=== PATIENT | female | born 1940 | race Caucasian/White ===

== ENCOUNTER 2021-09-17 19:48 | Emergency (ER) | payer MEDICARE ==
[~2021-09-17] VITALS: Ht 157.5 cm; Wt 54.5 kg
[2021-09-17] MEDS ORDERED: ondansetron/PF 4mg/2ml inj IV ONE (21:35)
[2021-09-17] MEDS ORDERED: normal saline 1000ml 1,000 ML IV ONE (21:50)
[2021-09-17 21:52] LABS: BASOPHILS % (AUTO) 0.1 % (0-1); EOSINOPHILS % (AUTO) 0 % (0-6); HEMATOCRIT 47.2 % (35.0-45.0); HEMOGLOBIN 15.5 g/dl (12.0-16.0); LYMPHOCYTES # (AUTO) 0.3 X10'3 (1.1-4.8); LYMPHOCYTES % (AUTO) 2.3 % (21-51); MEAN CORPUSCULAR HEMOGLOBIN 29.9 PG (27.0-31.0); MEAN CORPUSCULAR HGB CONC 32.7 g/dL (33.0-36.5); MEAN CORPUSCULAR VOLUME 91.5 FL (78-98); MONOCYTES # (AUTO) 0.7 X10'3 (0-0.9); MONOCYTES % (AUTO) 5.2 % (2-12); NEUTROPHILS # (AUTO) 12.9 X10'3 (1.8-7.7); NEUTROPHILS % (AUTO) 92.4 % (42-75); PLATELET COUNT 232 X10'3 (140-440); RED BLOOD COUNT 5.17 X10'6 (4.20-5.60); RED CELL DISTRIBUTION WIDTH 14.5 % (11.5-14.5)
[2021-09-17 22:13] LABS: ALANINE AMINOTRANSFERASE 23 U/L (12-78); ALBUMIN 4.3 G/DL (3.4-5.0); ALKALINE PHOSPHATASE 128 IU/L (46-116); ANION GAP 13 (8-16); ASPARTATE AMINO TRANSFERASE 26 U/L (10-37); BILIRUBIN,TOTAL 0.9 MG/DL (0.1-1.0); BLOOD UREA NITROGEN 19 MG/DL (7-18); BUN/CREATININE RATIO 21.8 (6.6-38.0); CALCIUM 9.9 MG/DL (8.5-10.1); CHLORIDE 109 MMOL/L (99-107); CREATININE 0.87 MG/DL (0.40-0.90); GLUCOSE 149 MG/DL (70-104); LIPASE 288 U/L (73-393); POTASSIUM 3.7 MMOL/L (3.5-5.1); SODIUM 146 MMOL/L (135-145); TOTAL CARBON DIOXIDE 24.2 MMOL/L (24-32); TOTAL PROTEIN 8.8 G/DL (6.4-8.2); eGFR 62 ML/MIN
[2021-09-17 22:27] LABS: TOTAL CELLS COUNTED 100
[2021-09-17 22:28] LABS: PLATELET ESTIMATE NORMAL
[2021-09-17] MEDS ORDERED: ONDA4TAB12 PO (23:16)
[2021-09-18 00:17] VITALS: BP 148/72
== END 2021-09-18 00:19 | disposition home or self-care (01) ==
LOC: EDBD 19:49 → ER 19:49
DX: A08.4 Viral intestinal infection, unspecified (principal); Z79.899 Other long term (current) drug therapy
CPT/HCPCS: 36415; 80053; 83690; 84484; 85007; 85025; 96361; 96374; 99283; J2405; J7030

== ENCOUNTER 2022-06-14 00:39 | Emergency (ER) | payer MEDICARE ==
[~2022-06-14] VITALS: Ht 157.5 cm; Wt 56.8 kg
[~2022-06-14 00:39] MED LIST: ONDA4TAB12 PO
[2022-06-14 00:45] VITALS: BP 197/87
== END 2022-06-14 10:17 | disposition left against medical advice (07) ==
LOC: ER 00:39
DX: R19.7 Diarrhea, unspecified (principal); Z53.21 Procedure and treatment not carried out due to patient leaving prior to being seen by health care provider

== ENCOUNTER 2022-12-15 08:14 | Emergency (ER) | payer MEDICARE ==
[~2022-12-15] VITALS: Ht 157.5 cm; Wt 54.5 kg
[2022-12-15 09:01] LABS: BASOPHILS # (AUTO) 0.1 X10'3 (0-0.2); BASOPHILS % (AUTO) 0.6 % (0-1); EOSINOPHILS % (AUTO) 0.3 % (0-6); HEMATOCRIT 44.7 % (35.0-45.0); HEMOGLOBIN 14.6 g/dl (12.0-16.0); LYMPHOCYTES # (AUTO) 1.5 X10'3 (1.1-4.8); LYMPHOCYTES % (AUTO) 12.7 % (21-51); MEAN CORPUSCULAR HEMOGLOBIN 30.5 PG (27.0-31.0); MEAN CORPUSCULAR HGB CONC 32.7 g/dL (33.0-36.5); MEAN CORPUSCULAR VOLUME 93.4 FL (78-98); MEAN PLATELET VOLUME 8.6 FL (7.4-10.4); MONOCYTES # (AUTO) 0.8 X10'3 (0-0.9); MONOCYTES % (AUTO) 6.7 % (2-12); NEUTROPHILS # (AUTO) 9.4 X10'3 (1.8-7.7); NEUTROPHILS % (AUTO) 79.7 % (42-75); PLATELET COUNT 261 X10'3 (140-440); RED BLOOD COUNT 4.79 X10'6 (4.20-5.60); RED CELL DISTRIBUTION WIDTH 13.7 % (11.5-14.5); WHITE BLOOD COUNT 11.8 X10'3 (4.5-11.0)
[2022-12-15 09:23] LABS: ALANINE AMINOTRANSFERASE 25 U/L (12-78); ALKALINE PHOSPHATASE 114 IU/L (46-116); ANION GAP 9 (8-16); ASPARTATE AMINO TRANSFERASE 40 U/L (10-37); BILIRUBIN,TOTAL 0.7 MG/DL (0.1-1.0); BLOOD UREA NITROGEN 14 MG/DL (7-18); BUN/CREATININE RATIO 13.1 (10.0-20.0); CALCIUM 9.4 MG/DL (8.5-10.1); CHLORIDE 103 MMOL/L (99-107); CREATININE 1.07 MG/DL (0.40-0.90); GLUCOSE 108 MG/DL (70-104); POTASSIUM 3.3 MMOL/L (3.5-5.1); SODIUM 140 MMOL/L (135-145); TOTAL CARBON DIOXIDE 27.9 MMOL/L (24-32); TOTAL PROTEIN 7.9 G/DL (6.4-8.2); eGFR 49 ML/MIN
[2022-12-15 09:24] LABS: LIPASE < 50 U/L (73-393)
[2022-12-15] MEDS ORDERED: amox tr/potassium clavulanate 875/125mg TAB PO ONE (09:55)
[2022-12-15] MEDS ORDERED: potassium Cl 20 mEq SR tablet PO STA (09:59)
[2022-12-15] MEDS ORDERED: ONDA4TAB12 PO (10:01)
[2022-12-15] MEDS ORDERED: AMOX-580 PO (10:01)
[2022-12-15] MEDS ORDERED: DICY10CA88 PO (10:01)
[2022-12-15 10:03] LABS: CLARITY,URINE CLOUDY (Clear); COLOR,URINE YELLOW (Yellow); GLUCOSE, URINE NEGATIVE (Neg); KETONES,URINE NEGATIVE (Neg); LEUKOCYTE ESTERASE ,URINE MODERATE (Neg); NITRITES, URINE NEGATIVE (Neg); OCCULT BLOOD,URINE TRACE-INTACT (Neg); PH,URINE 5.5 (4.8-8.0); PROTEIN,URINE NEGATIVE (Neg); UROBILINOGEN,URINE 0.2 E.U/dL (0.2-1.0)
[2022-12-15 10:07] LABS: UA COLLECTION TYPE CLN CATCH MIDSTREAM
[2022-12-15 10:11] LABS: SQUAMOUS EPITHELIAL CELL,UR MANY /LPF (FEW)
[2022-12-15 10:12] LABS: BACTERIA,URINE 2+ /HPF (Neg); MUCUS STRANDS FEW /LPF (Neg); RBC,URINE 0-2 /HPF (0-2); WBC CLUMPS,URINE MANY /HPF (NEGATIVE)
[2022-12-15 10:44] VITALS: BP 142/99
== END 2022-12-15 10:45 | disposition home or self-care (01) ==
LOC: ER 08:15
DX: K52.9 Noninfective gastroenteritis and colitis, unspecified (principal); K57.90 Diverticulosis of intestine, part unspecified, without perforation or abscess without bleeding; I10 Essential (primary) hypertension
CPT/HCPCS: 36415; 74176; 80053; 81001; 83690; 84145; 85025; 99284

== ENCOUNTER 2022-12-20 08:34 | Emergency (ER) | payer MEDICARE ==
[~2022-12-20] VITALS: Ht 157.5 cm; Wt 60.0 kg
[~2022-12-20 08:34] MED LIST changes: +AMOX-580 PO; +DICY10CA88 PO
--- NOTE | 2022-12-20 10:11 | NUR ---
Callled lab for rapid covid swab.as per syrup machine laborer they will deliver it to the er.
[2022-12-20 10:14] LABS: BASOPHILS # (AUTO) 0.1 X10'3 (0-0.2); BASOPHILS % (AUTO) 0.8 % (0-1); EOSINOPHILS # (AUTO) 0.1 X10'3 (0-0.9); HEMATOCRIT 40.3 % (35.0-45.0); HEMOGLOBIN 13.1 g/dl (12.0-16.0); LYMPHOCYTES # (AUTO) 1.4 X10'3 (1.1-4.8); LYMPHOCYTES % (AUTO) 20.1 % (21-51); MEAN CORPUSCULAR HEMOGLOBIN 30.6 PG (27.0-31.0); MEAN CORPUSCULAR HGB CONC 32.4 g/dL (33.0-36.5); MEAN CORPUSCULAR VOLUME 94.4 FL (78-98); MEAN PLATELET VOLUME 8.4 FL (7.4-10.4); MONOCYTES # (AUTO) 0.6 X10'3 (0-0.9); MONOCYTES % (AUTO) 8.1 % (2-12); NEUTROPHILS # (AUTO) 4.9 X10'3 (1.8-7.7); PLATELET COUNT 268 X10'3 (140-440); RED BLOOD COUNT 4.27 X10'6 (4.20-5.60); RED CELL DISTRIBUTION WIDTH 13.1 % (11.5-14.5); WHITE BLOOD COUNT 7.1 X10'3 (4.5-11.0)
[2022-12-20 11:34] LABS: ALANINE AMINOTRANSFERASE 25 U/L (12-78); ALBUMIN 3.5 G/DL (3.4-5.0); ALBUMIN/GLOBULIN RATIO 0.9 (1.1-1.5); ALKALINE PHOSPHATASE 90 IU/L (46-116); ANION GAP 10 (8-16); ASPARTATE AMINO TRANSFERASE 36 U/L (10-37); BILIRUBIN,TOTAL 0.3 MG/DL (0.1-1.0); BLOOD UREA NITROGEN 13 MG/DL (7-18); BUN/CREATININE RATIO 12.7 (10.0-20.0); CALCIUM 9.4 MG/DL (8.5-10.1); CHLORIDE 100 MMOL/L (99-107); CREATININE 1.02 MG/DL (0.40-0.90); GLUCOSE 90 MG/DL (70-104); POTASSIUM 4.1 MMOL/L (3.5-5.1); SODIUM 135 MMOL/L (135-145); TOTAL CARBON DIOXIDE 25.5 MMOL/L (24-32); TOTAL PROTEIN 7.3 G/DL (6.4-8.2); eGFR 52 ML/MIN
[2022-12-20 12:28] VITALS: BP 126/72
== END 2022-12-20 12:30 | disposition home or self-care (01) ==
LOC: ER 08:34
DX: K52.9 Noninfective gastroenteritis and colitis, unspecified (principal); Z20.822 Contact with and (suspected) exposure to COVID-19; I10 Essential (primary) hypertension; Z79.899 Other long term (current) drug therapy
CPT/HCPCS: 36415; 80053; 85025; 87811; 99283

== ENCOUNTER 2024-05-10 10:53 | Emergency (ER) | payer MEDICARE ==
[~2024-05-10] VITALS: Ht 157.5 cm; Wt 50.7 kg
[~2024-05-10 10:53] MED LIST changes: -AMOX-580 PO; -DICY10CA88 PO; +ONDA-243 PO; -ONDA4TAB12 PO
[2024-05-10 11:12] VITALS: TEMP 98.4
[2024-05-10] MEDS: diphenhydrAMINE 50 mg/ml inj IV ONE (11:33)
[2024-05-10] MEDS: famotidine/PF 10 mg/ml inj IV ONE (11:34)
[2024-05-10] MEDS: methylPREDNISolone sod succ/PF 40mg inj. IV ONE (11:34)
[2024-05-10] MEDS ORDERED: DIPH25CA83 PO (12:57)
[2024-05-10] MEDS ORDERED: PRED20TA PO (12:57)
[2024-05-10 12:59] VITALS: BP 120/67; PULSE 77; RESP 16; O2SAT 96
== END 2024-05-10 13:24 | disposition home or self-care (01) ==
LOC: ER 10:53
DX: T78.3XXA Angioneurotic edema, initial encounter (principal); I10 Essential (primary) hypertension; X58.XXXA Exposure to other specified factors, initial encounter
CPT/HCPCS: 96374; 96375; 99284; J1200; J2919; J3490

== ENCOUNTER 2024-10-17 06:53 | Emergency (ER) | payer MEDICARE ==
[~2024-10-17] VITALS: Ht 157.5 cm; Wt 53.7 kg
[~2024-10-17 06:53] MED LIST changes: +DIPH25CA83 PO; +PRED20TA PO
[2024-10-17 06:55] VITALS: BP 166/109; PULSE 97; RESP 16; TEMP 98; O2SAT 99
--- NOTE | 2024-10-17 07:28 | Physician Documentation ---
History of Present Illness ~ Chief Complaint: Eye Pain Stated Complaint: EYE PAIN Time Seen by MD: 07:09 OK to notify your PCP?: Yes Primary Medical Doctor: ELZBIETA SALVADOR Mode of Arrival: [facility] 84-year-old female patient came to the emergency room for left eye pain and irritation after she uses the eyedrops given by her primary care provider. She has been having this since Friday. 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 Her vision is essentially same. She was given two eyedrops and both causing burning sensation. Other complaints. Medication Reconciliation Allergies: Coded Allergies: No Known Allergies (Unverified , 06/14/22) Scheduled Prednisone* (Prednisone*), 3 TAB PO DAILY Scheduled PRN Diphenhydramine Hcl (Benadryl), 1 CAP PO HS PRN for allergies ONDANSETRON ODT 4mg tablet (Ondansetron Odt), 1 TABLET PO Q6H PRN for nausea/vomiting ONDANSETRON ODT 4mg tablet (Ondansetron Odt), 1 TABLET PO Q6H PRN for juana sea/vomiting Past Medical History Past Medical History: Hypertension Past Surgical History: no surgical history, noncontributory Alcohol Use: None Drug Use: none Review of Systems ROS As stated above in the HPI, otherwise all systems are reviewed and negative. Physical Exam Vital Signs: Temperature: 98.0, Source: Temporal, Heart Rate: 97, Respiratory Rate: 16, BP: 166/109, Pulse Oximetry: 99, Weight: 53.700 Oxygen Flow Rate: 0 Physical Exam Reviewed vital signs and they are well within normal range. Const: Patient looks well and ambulatory ,well oriented Head: Atraumatic Eyes: Normal Conjunctiva JULIANNA EOMI. Slight redness in the lower congenital ever in the middle. ENT: Normal External Ears, Nose and Mouth. Moist mucous membranes Neck: Full range of motion. No meningismus Resp: Clear to auscultation bilaterally. Normal work of breathing Cardio: Regular rate and rhythm, no murmurs. Skin well perfused Abd: Soft, non-tender, non-distended. Normal bowel sounds. No rebound or guarding Skin: No petechiae or rashes. Warm and dry Back: No midline or flank tenderness Ext: No cyanosis, or edema Neuro: Awake and alert Psych: Normal Mood and Affect Progress Results/Orders Results/Orders Completed Orders - LOREE ORDONEZ MD Ciprofloxacin Ophth Drops (Ciloxan 0.3% (10/17/24 07:10) Vital Signs 10/17/24 06:55 Temp 98.0 Pulse 97 Resp 16 B/P (MAP) 166/109 Pulse Ox 99 O2 Flow Rate 0 Medical Decision Making Findings During the physical examination, the findings suggestive of acute life- threatening condition such as JVD, tracheal deviation, acidotic breathing, noisy stridorous breath sounds, pulses paradoxus, muffled heart sounds, unequal breath sounds, abdominal rigidity and rebound tenderness, focal neurological deficits, cool clammy skin, severe hypotension, severe tachycardia or bradycardia are absent. Examination of the left eye does not reveal any abnormality and I think I will not be able to contribute much as she is going to see her lift supervisor tomorrow. What I will do his hours stopped to eyedrops and put her on Cipro ophthalmic solution and see how she does. DISCLAIMER Inadvertent spelling and grammatical errors,inadvertent ham pumper errors,syntax errors, grammatical errors, and spelling errors are likely due to EMR/dictation software use and do not reflect on the overall quality of patient care. Note that the electronic time recorded on this note does not necessarily reflect the actual time of the patient encounter. Departure Disposition: HOME / SELF CARE / HOMELESS Impression: Primary Impression: Irritation of left eye Condition: Stable Additional Instructions: Thank you so much for visiting [facility] Emergency room. Please ask your nurse or provider if you have questions about your care today and do not leave until all your questions have been answered. Please use any medications given as directed and see your eye doctor lift supervisor Friday as planned. Referrals: NO PRIMARY CARE PROVIDER (PCP) Prescriptions Ciprofloxacin Hcl Ophth* (Ciloxan 0.35 Ophth Drops*) 2.5 Ml Bottle 1 DROP LEFTEYE Q6H for 7 Days, #5 ML Prov: LOREE ORDONEZ MD 10/17/24 Education Educated: Patient Educated regarding: diagnosis, need for follow up Signature Scribe Signature: x Attestation: LOREE Art MD October 17, 2024 07:28
[2024-10-17] MEDS ORDERED: CIPR2.5D21 LEFTEYE (07:29)
[2024-10-17] MEDS: ciprofloxacin 0.3% 2.5ml ophthalmic solution LEFTEYE ONE (07:58)
== END 2024-10-17 08:03 | disposition home or self-care (01) ==
LOC: ER 06:54
DX: H57.89 Other specified disorders of eye and adnexa (principal); I10 Essential (primary) hypertension
CPT/HCPCS: 99283

== ENCOUNTER 2025-06-03 03:36 | Emergency (ER) | payer MEDICARE ==
[~2025-06-03] VITALS: Ht 157.5 cm; Wt 52.3 kg
--- NOTE | 2025-06-03 04:21 | Physician Documentation ---
History of Present Illness ~ Chief Complaint: Bloody Stools Stated Complaint: DIARRHEA Time Seen by MD: 03:53 Primary Medical Doctor: ELZBIETA SALVADOR HPI Patient presents to the emergency room with bright red blood per rectum. No prior instances. She is not on blood thinners. Patient has been having diarrhea for the past few days with no abdominal pain and when she wiped tonight she noticed that has blood and looked in the toilet to see that the toilet was filled with blood therefore came in to be evaluated. No fevers. Only past medical history she reports that has hypertension for which she takes medications for this. Medication Reconciliation Allergies: Coded Allergies: [email or web address] (Verified Allergy, Severe, Anaphylaxis, 06/03/25) Scheduled Prednisone* (Prednisone*), 3 TAB PO DAILY Scheduled PRN Diphenhydramine Hcl (Benadryl), 1 CAP PO HS PRN for allergies ONDANSETRON ODT 4mg tablet (Ondansetron Odt), 1 TABLET PO Q6H PRN for nausea/vomiting ONDANSETRON ODT 4mg tablet (Ondansetron Odt), 1 TABLET PO Q6H PRN for nausea/vomiting Past Medical History Past Medical History: Hypertension Past Surgical History: no surgical history, noncontributory Alcohol Use: None Drug Use: none Review of Systems ROS All review of systems negative except as per HPI Physical Exam Vital Signs: Temperature: 98.6, Source: Oral, Heart Rate: 94, Respiratory Rate: 16, BP: 110/73, Pulse Oximetry: 99, Weight: 52.270 Physical Exam General: Patient is awake, alert, oriented x4 in no acute distress and well appearing.~ Head: Normocephalic and atraumatic. Eyes: Conjunctival normal. EOMI. PERRL. ENT: Mucous membranes moist. Neck: Supple, trachea is midline. Chest: Clear to auscultation bilaterally without rales, rhonchi, or wheezes. There is no accessory muscle use or retractions. Cardiac: Tachycardic and regular without murmurs, gallops, or rubs. Abd: Soft, nondistended, nontender, with normoactive bowel sounds. No guarding, rebound, or rigidity. Progress Results/Orders Results/Orders Completed Orders - EDOUARD KLINE MD Cbc/Diff (06/03/25 04:19) BMP (06/03/25 04:19) PTT (06/03/25 04:19) Pt Inr (06/03/25 04:19) Type And Screen (06/03/25 04:19) Electrocardiogram (06/03/25 04:22) TSH (06/03/25 04:22) Ua W/Microscopic, Cult If Ind (06/03/25 05:23) Vital Signs 06/03/25 06/03/25 06/03/25 06/03/25 03:58 04:05 05:39 06:02 Temp 98.6 Pulse 94 103 102 Resp 18 16 16 16 B/P (MAP) 110/73 99/60 (73) 105/60 (75) Pulse Ox 99 100 99 Laboratory Tests Test 06/03/25 04:40 06/03/25 05:23 White Blood Count 9.0 Red Blood Count 4.45 Hemoglobin 13.2 Hematocrit 39.8 Mean Corpuscular Volume 89.4 Mean Corpuscular Hemoglobin 29.6 Mean Corpuscular Hemoglobin Concent 33.1 Red Cell Distribution Width 13.9 Platelet Count 280 Mean Platelet Volume 8.5 Neutrophils (%) (Auto) 71.4 Lymphocytes (%) (Auto) 19.4 L Monocytes (%) (Auto) 7.4 Eosinophils (%) (Auto) 0.8 Basophils (%) (Auto) 1.0 Neutrophils # (Auto) 6.4 Lymphocytes # (Auto) 1.7 Monocytes # (Auto) 0.7 Eosinophils # (Auto) 0.1 Basophils # (Auto) 0.1 CBC Comment Prothrombin Time 10.9 INR International Normalized Ratio 1.1 Activated Partial Thromboplast Time 32 Coagulation Comments Sodium Level 138 Potassium Level 4.2 Chloride Level 106 Carbon Dioxide Level 22.7 L Anion Gap 9 Blood Urea Nitrogen 20 H Creatinine 1.32 H Estimated GFR/1.73 m2 38 BUN/Creatinine Ratio 15.2 Glucose Level 87 Calcium Level 9.8 Albumin 3.9 Thyroid Stimulating Hormone (TSH) 0.82 Chemistry Comments Urine Specimen Description Non-specified Urine Color Yellow Urine Clarity Slightly cloudy Urine pH 5.5 Urine Specific [place] <=1.005 Urine Protein Negative Urine Glucose (UA) Negative Urine Ketones Negative Urine Occult Blood Negative Urine Nitrite Negative Urine Bilirubin Negative Urine Urobilinogen 0.2 Urine Leukocyte Esterase Small H Urine RBC 0-2 Urine WBC 0-4 Urine Squamous Epithelial Cells Many Urine Transitional Epithelial Cells Few Urine Bacteria Few Urine Culture Indicated Rejected for culture Volume Urine Centrifuged 10 ml Urine Comment EKG/XRAY/CT/US/VASC/MRI EKG : Additional Comment EKG interpreted by myself shows time of 426, rate 103, sinus tachycardia, borderline left axis deviation, no ST changes Medical Decision Making Additional information obtaine: old records Findings Patient presented to the emergency room with one episode of bright red blood per rectum that has per HPI. Differentials include but are not limited to anemia, hemorrhoidal bleed, diverticular bleed, av malformation, blood describe lysis therefore labs ordered which were reassuring. No significant elevation of BUN and he had not feel patient is suffering from an upper GI bleed. Hemoglobin reassuring. Had discussion with the patient regarding risks of profuse bleeding she has acknowledged this. I feel patient is safe for discharge with ER precautions discussed. Diff Dx GI Bleed:Consideration: Include: AE fistula, Angiodysplasia, Bleeding diathesis, Blood loss anemia, Carcinoma, Diverticulosis, Diverticulitis, Esophageal varicies, Esophagitis, Gastritis, Gastroenteritis, Inflammatory BD, Jessica-Mo syndrome, Meckel's diverticulum, PUD, Other Departure Disposition: 01 HOME / SELF CARE / HOMELESS Impression: Primary Impression: Blood per rectum Condition: Stable Discharge Instructions: Bloody Stools Referrals: NO PRIMARY CARE PROVIDER (PCP) Signature Scribe Signature: No scribe Attestation: The note accurately reflects work and decisions made by me.Edouard Kline MD 06/03/25 06:09 EDOUARD KLINE MD Jun 03, 2025 04:21
--- NOTE | 2025-06-03 04:30 | ELECTROCARDIOGRAPH REPORT ---
[facility] Test Date: 2025-06-03 Test Time: 04:27:38 Pat Name: DELBERT MENDIETA Department: [facility]-ER Patient ID: [facility]-[id number] Room: Gender: F It Application Support Analyst: LULI : 1940 Requested By: DARYA VASQUES Order Number: [id number] Reading MD: Measurements Intervals [place] Rate: 103 P: 74 KS: 178 QRS: -18 QRSD: 82 T: 54 QT: 331 QTc: 434 Interpretive Statements Sinus tachycardia Borderline left axis deviation Borderline low voltage, extremity leads Baseline wander in lead(s) I,aVL,V1 Please click the below link to view image of tracing.
[2025-06-03 04:59] LABS: MEAN PLATELET VOLUME 8.5 FL (7.4-10.4); RED CELL DISTRIBUTION WIDTH 13.9 % (11.5-14.5)
[2025-06-03 05:31] LABS: LEUKOCYTE ESTERASE ,URINE SMALL (Neg); NITRITES, URINE NEGATIVE (Neg); OCCULT BLOOD,URINE NEGATIVE (Neg)
[2025-06-03 05:33] LABS: UA COLLECTION TYPE NON-SPECIFIED
[2025-06-03 05:38] LABS: SQUAMOUS EPITHELIAL CELL,UR MANY /LPF (FEW)
[2025-06-03 05:52] LABS: APTT 32 SECONDS (22-32); INR 1.1 INR
[2025-06-03 06:02] LABS: CREATININE 1.32 MG/DL (0.40-0.90); TOTAL CARBON DIOXIDE 22.7 MMOL/L (24-32); eCRCL 24 ML/MIN; eGFR 38 ML/MIN
[2025-06-03 06:19] VITALS: BP 124/80; PULSE 99; RESP 16; TEMP 98.1; O2SAT 99
== END 2025-06-03 06:20 | disposition home or self-care (01) ==
LOC: ER 03:37
DX: K62.5 Hemorrhage of anus and rectum (principal); I10 Essential (primary) hypertension; Z79.899 Other long term (current) drug therapy; Z88.8 Allergy status to other drugs, medicaments and biological substances
CPT/HCPCS: 36415; 80048; 81001; 84443; 85025; 85610; 85730; 86885; 86900; 86901; 93005; 99284